=== PATIENT | female | born 1940 | race Caucasian/White ===

== ENCOUNTER → 2017-08-12 | Outpatient (CLI) | payer MEDICARE ==
[~2017-08-12] VITALS: Ht 165.1 cm; Wt 75.3 kg
[~2017-08-12] MED LIST: AMLO10; ATOR10; ATOR20TA15 PO; CHLORHEXIDINE GLUCONATE 2 % 1 PACK (2 CLOTHS) TOPICAL PRN; CLON.2; DILA100C; ENAL5TAB38; LACTATED RINGER'S 1000 ML IV PRN; LEVE500T8 PO; LIDOCAINE HCL 1% PF 5 ML SYRINGE OTHER ONE; LORA10TA7; LOSA100T PO; METO50TA PO; METOPROLOL TARTRATE 25 MG TAB ONE; METOPROLOL TARTRATE 25 MG TAB PO PRN; POVIDONE IODINE 5% (ANTISEPSIS KIT) 4 APPLICATIONS EACH NARE PRN; PROPOFOL 200 MG/20 ML AMP IV ONE; SODIUM CHLORID 0.9% 500 ML IV PRN
--- NOTE | 2017-08-12 11:55 | GIPROC ---
[facility] [address] [facility]. [facility] [place], [id number] EGD PROCEDURE REPORT EXAM DATE: 08/12/2017 PATIENT NAME: Marcy Henriquez MR #: [id number] BIRTHDATE: 1940 ATTENDING: Crispin Mueller MD ORDER #: [id number] MANAGER PROCUREMENT: Amaya Rodriguez RN STATUS: outpatient INDICATIONS: The patient is a 77 yr old female here for an EGD due to anemia PROCEDURE PERFORMED: EGD w/ biopsy MEDICATIONS: None and Per Anesthesia. TOPICAL ANESTHETIC: none CONSENT: The patient understands the risks and benefits of the procedure and understands that these risks include, but are not limited to: sedation, allergic reaction, infection, perforation and/or bleeding. Alternative means of evaluation and treatment include, among others: physical exam, x-rays, and/or surgical intervention. The patient elects to proceed with this endoscopic procedure. medical equipment was checked for proper function. Hand hygiene and appropriate measures for infection prevention was taken. After the risks, benefits and alternatives of the procedure were thoroughly explained, Informed consent was verified, confirmed and timeout was successfully executed by the treatment team. The patient was anesthetized with topical anesthesia and the Pentax EG-[id number] endoscope was introduced through the mouth and advanced to the second portion of the duodenum. Retroflexion was performed and was normal The gastroscope was then slowly withdrawn and removed. ESOPHAGUS: The mucosa of the esophagus appeared normal. STOMACH: Multiple small irregular shaped and shallow erosions were found in the gastric antrum. Multiple biopsies was performed using cold forceps. DUODENUM: The duodenal mucosa appeared normal in the bulb and second portion of the duodenum. ADVERSE EVENTS: There were no complications. IMPRESSIONS: 1. The esophagus appeared normal 2. Multiple small erosions were found in the gastric antrum; multiple biopsies was performed 3. Normal duodenal mucosa in the bulb and second portion of the duodenum 4. Retroflexion was performed and was normal RECOMMENDATIONS: Await biopsy results. Biopsy results will not be ready for 7-10 days. If you don't hear from us in two weeks, call our office for biopsy results. PATIENT CONDITION: stable DISPOSITION: Observation REPEAT EXAM: NONE Crispin Mueller MD eSigned: Crispin Mueller MD 08/12/2017 11:55 AM cc: PATIENT NAME: Marcy Henriquez MR#: [id number]
[2017-08-12 12:56] VITALS: BP 108/50; PULSE 66; RESP 18; TEMP 97.1; O2SAT 100
--- NOTE | 2017-08-12 15:30 | EKG ---
Date Performed: 08/12/2017 Time Performed: 09:45:28 PTAGE: 77 years EKG: Sinus rhythm SEPTAL MYOCARDIAL INFARCTION , PROBABLY OLD MODERATE T-WAVE ABNORMALITY, CONSIDER LATERAL ISCHEMIA A BNORMAL ECG Since the PREVIOUS TRACING , no significant change noted PREVIOUS TRACIN08/20/2005 11.18 DOCTOR: Christen Herbert Interpretating Date/Time 08/12/2017 15:29:02
== END ==
LOC: HSDC 09:09
PROVIDERS: ATTEND Specialist
DX: K29.50 Unspecified chronic gastritis without bleeding (principal); D64.9 Anemia, unspecified; I25.10 Atherosclerotic heart disease of native coronary artery without angina pectoris; I35.0 Nonrheumatic aortic (valve) stenosis; Z01.810 Encounter for preprocedural cardiovascular examination
CPT/HCPCS: 88305; 88312; 93005